=== PATIENT | female | born 1990 | race Asian ===

== ENCOUNTER → 2017-04-15 | Outpatient (CLI) | payer OTHER ==
[~2017-04-15] MED LIST: ACET50TA PO; COLA100C5 PO; PRENTAB9 PO
== END ==
LOC: M LDO 05:57
PROVIDERS: ATTEND Obstetrics & Gynecology
DX: O47.1 False labor at or after 37 completed weeks of gestation (principal); Z3A.39 39 weeks gestation of pregnancy

== ENCOUNTER 2017-04-17 06:25 | Inpatient (IN) | payer OTHER ==
[~2017-04-17] VITALS: Ht 167.6 cm; Wt 72.0 kg
[2017-04-17] VITALS (7 sets, daily range): BP systolic 115–132; BP diastolic 62–72
[2017-04-17] MEDS ORDERED: LR 1,000 ML IV SCH (07:09)
[2017-04-17] MEDS ORDERED: LACTATED RINGER'S 1000 ML IV STA (07:09)
[2017-04-17 07:22] LABS: MEAN CORPUSCULAR HEMOGLOBIN 27.7 pg (27.0-33.0); MEAN CORPUSCULAR HGB CONC 33.2 g/dl (32.0-36.5); MEAN CORPUSCULAR VOLUME 83.5 fl (80.0-96.0); RED CELL DISTRIBUTION WIDTH 14.1 % (11.5-14.5); WHITE BLOOD COUNT 10.9 K/mm3 (4.0-10.0)
--- NOTE | 2017-04-17 07:51 | HPEPDOC ---
Obstetrical History & Physical General Date of Admission Apr 17, 2017 at 06:48 History of Present Illness 26 y/o at 40+1 (no chart available on L&D and could not find it in the clinic, I have access to her passport and her labs/US results and I reviewed all the [facility] notes throughout her ) with reg painful ctx's since MN. No LOF/VB. Pos FM throughout. Checked by RN and found tro be 8 cm with a BBOW. I did not recheck her cx immediately but I did perform an interview and cursory exam and a limited Abdom US to confirm vtx. Chief Complaint: Contractions, term Information Provided By: Patient Care Care: Good Care Dating Final EDC by: LMP, 1st trimester (US) Past Medical History Past Obstetrical History : Past Obstetrical History: Primgravida Past Medical History Medical History denies Surgical History: Denies/None Family History Significant Family History: No pertinent family hx Social History Marital Status: Single Family situation: Spouse/partner home Psychosocial History: No pertinent psych hx * Smoker: non-smoker Alcohol: Denies Abuse Violence Screening Have you been hit/kicked/slapp: No Have you been sexually assault: No Allergies Coded Allergies: No Known Allergies (Unverified , 04/17/17) Physical Examination Physical Examination GENERAL: Alert and oriented times three. ABDOMEN: Gravid and non-tender to touch. FETUS:vertex (VTX) by TAUS EXTREMITIES: No edema. No clonus. Vital Signs/I&O Vital Signs Date Time Temp Pulse Resp B/P (MAP) Pulse Ox O2 Delivery O2 Flow Rate FiO2 04/17/17 07:31 99.3 89 18 117/63 (81) Room Air Laboratory Data 24H LABS Laboratory Tests 2 04/17/17 07:02: CBC/BMP Laboratory Tests 04/17/17 07:02 Red Blood Count 3.75 L, Mean Corpuscular Volume 83.5, Mean Corpuscular Hemoglobin 27.7, Mean Corpuscular Hemoglobin Concent 33.2, Red Cell Distribution Width 14.1 Urine Culture: No Growth Pertinent Laboratoy Data Blood Type: O+ RBC Antibody Screen: Negative HIV: Negative Hepatitis B: Negative Hepatitis C: Unknown Rapid Plasma Reagin: Nonreactive Rubella: Immune Varicella: Nonreactive Chlamydia/Gonorrhea: Negative Group B Streptococcus: Negative Quad Screen Test: Negative Cystic Fibrosis: Negative Glucose Tolerance Test: 109 Anatomy Ultrasound Ultrasound Date: Dec 01, 2016 Placenta Location: Anterior Normal Anatomy: Yes Placenta Previa: No Assessment Variability: Moderate Accelerations: Positive Decelerations: None Tocometer Contractions: Yes Frequency: regular Duration: greater than 60 seconds Assessment/Plan Assessment Active labor at 40+1 Plan Admit and orient. Mri Technologist and consent. Diet: clrs Group B Streptococcus (GBS) negative Labs and intravenous (IV) per unit protocol. Lactated Ringers Anticipate normal spontaneous delivery () C-S as appropriate. SBAR to Dr Ha at 0830 SESSIONS,ERIKA Hair MD Apr 17, 2017 07:51
[2017-04-17] MEDS ORDERED: OXYTOCIN DRIP 30 UNITS in APPROPRIATE DILUENT 1 EA IV SCH (11:45)
[2017-04-17] MEDS ORDERED: ACETAMINOPHEN 500 MG TAB PO PRN (13:15)
[2017-04-17] MEDS ORDERED: ONDANSETRON 4MG/2ML VIAL (J2405) IV PRN (13:15)
[2017-04-17] MEDS ORDERED: DIBUCAINE 1% OINTMENT 30GM TOP PRN (13:15)
[2017-04-17] MEDS ORDERED: RHOGAM 300 MCG (1500 IU) INJ (J2790) IM SCH (13:15)
[2017-04-17] MEDS ORDERED: MOM 30ML SUSPENSION UDC PO PRN (13:15)
[2017-04-17] MEDS ORDERED: LIDOCAINE 1% MDV INJ 50 ML VIAL INFIL ONE (13:15)
[2017-04-17] MEDS ORDERED: DOCUSATE SODIUM 100 MG CAP PO PRN (13:15)
[2017-04-17] MEDS ORDERED: MEASLES,MUMPS,RUBELLA VACCINE INJ (MMR-II) (90707) SC SCH (13:15)
[2017-04-17] MEDS ORDERED: METHYLERGONOVINE MALEATE 0.2 MG TAB PO PRN (13:15)
[2017-04-17] MEDS ORDERED: PROMETHAZINE 25 MG TAB PO PRN (13:15)
[2017-04-17] MEDS ORDERED: ANUSOL HC CREAM 30GM TOP PRN (13:15)
[2017-04-17] MEDS: IBUPROFEN 800 MG TAB PO PRN (13:50)
[2017-04-18 06:05] VITALS: BP 127/70
[2017-04-18] MEDS: PRENATAL VITAMINS CHEWABLE TABLET PO SCH (08:39)
[2017-04-18 18:00] VITALS: BP 112/68
[2017-04-18] MEDS: IBUPROFEN 800 MG TAB PO PRN (21:03)
[2017-04-19 06:29] VITALS: BP 112/65
[2017-04-19] MEDS: PRENATAL VITAMINS CHEWABLE TABLET PO SCH (08:06)
[2017-04-19] MEDS: IBUPROFEN 800 MG TAB PO PRN (08:08)
[2017-04-19] MEDS ORDERED: ACET50TA PO (08:39)
[2017-04-19] MEDS ORDERED: COLA100C5 PO (08:39)
[2017-04-19] MEDS ORDERED: PRENTAB9 PO (08:39)
== END 2017-04-19 11:00 | disposition home or self-care (01) | DRG 775 ==
LOC: M LDO 06:25 → M LDI 06:48 → M OBS 14:58
PROVIDERS: ADMIT Obstetrics & Gynecology; ATTEND Obstetrics & Gynecology
PROC: 10E0XZZ Delivery of Products of Conception, External Approach (ICD-10-PCS; principal; 2017-04-17)
PROC: 0KQM0ZZ Repair Perineum Muscle, Open Approach (ICD-10-PCS; 2017-04-17)
DX: O48.0 Post-term pregnancy (principal); Z37.0 Single live birth; Z3A.40 40 weeks gestation of pregnancy; O69.82X0 Labor and delivery complicated by other cord entanglement, without compression, not applicable or unspecified; O70.1 Second degree perineal laceration during delivery

== ENCOUNTER → 2017-06-17 | Outpatient (CLI) | payer OTHER ==
--- NOTE | 2017-06-17 15:02 | REP ---
ULTRASOUND LEFT BREAST: Real-time sonographic evaluation of the left breast performed at the site of a reported palpable abnormality at 5-o'clock, which has been present for two weeks and has also been tender. In this region there is dense fibroglandular tissue. There is a cyst with debris measuring 1.1 x 0.8 x 1.4 cm. IMPRESSION: ACR 2 benign. Mildly complex cyst at the 5-o'clock position of the left breast at the site of the reported palpable abnormality. Signed by Handy Haddad MD 06/17/2017 05:36 P
== END ==
LOC: M RAD 13:33
PROVIDERS: ATTEND Obstetrics & Gynecology
DX: N63.0 Unspecified lump in unspecified breast (principal)

== ENCOUNTER 2017-08-04 13:03 | Day surgery (SDC) | payer OTHER ==
[~2017-08-04] VITALS: Ht 162.6 cm; Wt 60.8 kg
[2017-08-04] MEDS ORDERED: LR 1,000 ML IV ONE (13:30)
[2017-08-04] MEDS ORDERED: CEFAZOLIN SOD 1 GM in APPROPRIATE DILUENT 1 EA IV ONE (13:30)
[2017-08-04] MEDS ORDERED: NS 1,000 ML IV SCH ×2 (13:30→14:30)
[2017-08-04 13:33] LABS: MEAN CORPUSCULAR HEMOGLOBIN 27.9 pg (27.0-33.0); MEAN CORPUSCULAR HGB CONC 33.4 g/dl (32.0-36.5); MEAN CORPUSCULAR VOLUME 83.5 fl (80.0-96.0); PLATELET COUNT, AUTOMATED 311 10^3/uL (150-450); RED CELL DISTRIBUTION WIDTH 13.2 % (11.5-14.5)
[2017-08-04] MEDS ORDERED: ACETAMINOPHEN 650 MG SUPP As Ordered ONE (13:48)
[2017-08-04] MEDS ORDERED: MIDAZOLAM INJ 2 MG/2 ML VIAL (J2250) As Ordered ONE (13:48)
[2017-08-04] MEDS ORDERED: BUPIVACAINE HCL 0.5% 10 ML VIAL As Ordered ONE (13:48)
[2017-08-04] MEDS ORDERED: fentaNYL 100 MCG/2 ML INJECTION (J3010) As Ordered ONE (13:49)
[2017-08-04 13:58] LABS: ANION GAP 11 MEQ/L (8-16); BLOOD UREA NITROGEN 15 MG/DL (7-18); CALCIUM LEVEL 8.6 MG/DL (8.5-10.1); CARBON DIOXIDE LEVEL 23 MEQ/L (21-32); CHLORIDE LEVEL 107 MEQ/L (98-107); CREATININE FOR GFR 0.66 MG/DL (0.55-1.02); GLOMERULAR FILTRATION RATE > 60.0 (>60); GLUCOSE, FASTING 105 MG/DL (70-105); HCG, SERUM QUANTITATIVE < 1.0 MIU/ML; POTASSIUM SERUM 3.9 MEQ/L (3.5-5.1); SODIUM LEVEL 141 MEQ/L (136-145)
[2017-08-04] MEDS ORDERED: PROPOFOL 200 MG/20 ML VIAL As Ordered ONE ×2 (15:53→16:23)
[2017-08-04] MEDS ORDERED: LIDOCAINE 2% INJ 100 MG/5 ML SDV (FOR ANES.) As Ordered ONE (15:53)
[2017-08-04] MEDS ORDERED: LIDOCAINE 2% JELLY 30 ML As Ordered ONE (16:30)
[2017-08-04] MEDS ORDERED: HYDROmorphone HCL 1 MG/ML SYRINGE (J1170) IV PRN (17:00)
[2017-08-04] MEDS ORDERED: LR 1,000 ML IV SCH (17:00)
[2017-08-04] MEDS ORDERED: PERCOCET 5MG/325MG TAB PO PRN (17:00)
[2017-08-04] MEDS ORDERED: fentaNYL 100 MCG/2 ML INJECTION (J3010) IV PRN (17:00)
[2017-08-04] MEDS ORDERED: ONDANSETRON 4MG/2ML VIAL (J2405) IV PRN (17:00)
[2017-08-04 20:15] VITALS: BP 109/58
--- NOTE | 2017-08-05 10:05 | RO ---
DATE OF PROCEDURE: 08/04/2017 PREOPERATIVE DIAGNOSIS: Granuloma in the episiotomy site. POSTOPERATIVE DIAGNOSIS: Granuloma in the episiotomy site. PROCEDURE PERFORMED: Excision of granulomatous tissue, revision of episiotomy site. SURGEON: Dr. Fortunato Wallace RELEASE AND TECHNICAL RECORDS CLERK: ANESTHESIA: DESCRIPTION OF PROCEDURE: After adequate time-out, sequentials on board, acetaminophen suppository 1300 mg per rectum, the bladder was drained with straight cath. We evaluated the area of granulation tissue. It was mostly at the introital area as well as going down one-third of the perineal body. It did not enter into the vaginal body at all. It was quite an extensive granulomatous tissue with scarring. We excised that out. The granulomas tissue was sent to pathology under separate cover. We opened up the area, loosened up the edges in order to revascularize the area. Then using a Monocryl #2-0 on a non-cutting needle, we put three interrupted sutures in. Then closed the incisional site with good hemostasis. We then went ahead and put a Xeroform on there with 2% Xylocaine and the patient was taken back to recovery in good condition.
== END 2017-08-04 20:30 | disposition home or self-care (01) ==
LOC: M SDC 13:03
PROVIDERS: ATTEND Obstetrics & Gynecology
DX: R10.2 Pelvic and perineal pain (principal); L92.9 Granulomatous disorder of the skin and subcutaneous tissue, unspecified
CPT/HCPCS: 11423; 36415; 80048; 84702; 85027; 88304; J0690; J2250; J3010